=== PATIENT | female | born 1950 | race African-American/Black ===

== ENCOUNTER 2016-03-18 14:29 | Emergency (ER) | payer MEDICARE, OTHER ==
[~2016-03-18] VITALS: Ht 167.6 cm; Wt 74.8 kg
[~2016-03-18 14:29] MED LIST: ASPIR 8181 MG ORAL; CLOPIDOGREL75 MG ORAL; HYDROCHLOROTHIA25 MG ORAL; LISINOPRIL20 MG ORAL; LORAZEPAM0.5 MG ORAL; LOSARTAN POTASS50 MG ORAL; METOPROLOL SUC100 MG ORAL; SIMVASTATIN20 MG ORAL; TRAMADOL HCL50 MG ORAL
[2016-03-18 15:14] VITALS: BP 202/66
--- NOTE | 2016-03-18 15:52 | Emergency Room Report ---
History of Present Illness General Chief Complaint: Hypertension Source: Patient Present Illness HPI 65 YO F sent from PMD's office for elevated BP. Patient is currently taking metoprolol and HCTZ for HTN. 2.5 weeks ago was started on Lisinopril - immediately devleoped "bad reaction" to it, nausea/vomiting, depression, weakness so stopped taking. [place] better today, went to PMD's office. Is asymptomatic. BP in office had SBP >200. Patient also asymptomatic here. Denies chest pain, SOB, headache, abd pain, nausea/vomiting. Allergies: Coded Allergies: No Known Allergies (Unverified , 01/29/16) Patient History Past Medical History: HTN, other - HLD Past Surgical History: none Pertinent Family History: none Social History: Denies: alcohol use, drug use, smoking Now: No Immunizations: UTD Reviewed Nursing Documentation: PMH: Agreed, PSxH: Agreed Nursing Documentation-PMH Hx Cardiac Problems: No Hx Cancer: No Hx Gastrointestinal Problems: No Hx Cerebrovascular Accident: Yes - x4 Review of Systems All Other Systems: negative except mentioned in HPI Physical Exam Vital Signs Date Time Temp Pulse Resp B/P Pulse Ox O2 Delivery O2 Flow Rate FiO2 03/18/16 15:03 97.9 64 16 228/81 99 Room Air Sp02 EP Interpretation: reviewed, abnormal General Appearance: normal inspection, well appearing, no apparent distress, alert, GCS 15, non-toxic Head: normocephalic, atraumatic Eyes: bilateral eye EOMI, bilateral eye PERRL ENT: normal ENT inspection, hearing grossly normal, normal voice Neck: normal inspection, full range of motion, supple, no bony tend Respiratory: normal inspection, lungs clear, normal breath sounds, no respiratory distress, no retraction, no wheezing Cardiovascular #1: regular rate, rhythm, no edema Gastrointestinal: normal inspection, normal bowel sounds, non tender, soft, no guarding, no hernia Genitourinary: no CVA tenderness Musculoskeletal: normal inspection, back normal, normal range of motion, Sean' s Sign negative Neurologic: normal inspection, alert, oriented x3, responsive, 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 Compliant with metoprolol and HCTZ. SBP > 200 here. DBP is normal. Asymptomatic in ED Patient likely needs starting 3rd medication for uncontrolled BP. Has never taken Norvasc before. Initial dose 10mg given in ED with improvement. This should have been started by PMD as patient is asymptomatic and DBP is <110. Will DC with Norvasc 10mg for 30 days and recommended PMD followup Patient is very amenable to this plan - she is actually upset she was sent by PMD when PMD could've started a third medication in her office. No other acute issue in ED DC home Last Vital Signs Date Time Temp Pulse Resp B/P Pulse Ox O2 Delivery O2 Flow Rate FiO2 03/18/16 15:14 64 16 Room Air 03/18/16 15:14 97.9 202/66 99 Status: improved Disposition: HOME, SELF-CARE DAYO WOLF M.D. Mar 18, 2016 15:52
[2016-03-18] MEDS ORDERED: NORVASC10 MG ORAL (15:53)
[2016-03-18 16:18] VITALS: BP 191/87
[2016-03-18 16:23] VITALS: BP 202/66
== END 2016-03-18 23:58 | disposition home or self-care (01) ==
LOC: EMR 23:42
DX: I10 Essential (primary) hypertension (principal); Z86.73 Personal history of transient ischemic attack (TIA), and cerebral infarction without residual deficits
CPT/HCPCS: 99283